=== PATIENT | female | born 1960 | race Caucasian/White ===

== ENCOUNTER 2018-10-28 16:45 | Inpatient (IN) ==
[2018-10-28] MEDS ORDERED: PERCOCET-5 PO PRN (19:02)
[2018-10-28] MEDS ORDERED: VALIUM PO PRN (19:02)
[2018-10-28] MEDS ORDERED: RANITIDINE HCL 300 MG PO PRN (19:02)
[2018-10-28] MEDS ORDERED: MAGNESIUM SULFATE 1 GM/D5W 1 GM/100 ML IVPB IV ONE (19:08)
[2018-10-28] MEDS ORDERED: VANCOMYCIN IV PER PHARMACY MISC SCH (19:15)
[2018-10-28 19:59] LABS: BASO# 0.02 X1000 (0.0-0.2); BASO% 0.2 % (0.0-0.8); EOS% 2.2 % (0.0-10.0); HEMATOCRIT 39.5 % (37.0-47.0); LYMPH# 2.36 X1000 (1.2-3.4); LYMPH% 26.5 % (20.5-51.1); MCH 31.5 PG (27-31); MCHC 32.9 g/dL (33-37); MCV 95.6 FL (81-99); MONO# 0.55 X1000 (0.11-0.59); MONO% 6.2 % (1.7-9.3); MPV 11.3 FL (7.4-10.4); NEUT# 5.78 X1000 (1.4-6.5); NEUT% 64.9 % (42.2-75.2); PLT 244 X1000 (130-400); RBC 4.13 XMIL (4.2-5.4); RDW 13.1 % (11.5-14.5); WBC 8.91 X1000 (4.8-10.8)
--- NOTE | 2018-10-28 20:11 | GENERAL SURGERY CONSULTATION ---
DATE: 10/28/2018 HPI: This is a 58-year-old female who had a port placed on October [address] Wilson. This is for chronic magnesium infusions at home. She is chronically hypomagnesemic. She over last 24 hours developed pain, erythema and swelling overlying her right port and catheter site. She went to [facility] in [facility] where there was apparently no surgical coverage where consult via the phone and transfer was remained here for management of this. She has been started on broad- spectrum antibiotics. Blood cultures have been drawn both there and here. She denies any chest pain, shortness of breath. She has no upper extremity swelling. Port has been functioning okay. Said they did have some difficulty last go round with drawing blood specimen. MEDICAL HISTORY: Chronic low magnesium, PTSD, Sjogren syndrome, irritable bowel, hyperlipidemia, depression, interstitial cystitis. SURGICAL HISTORY: She had a right internal jugular vein port, she has had management of bleeding ulcers, cholecystectomy, hysterectomy, right wrist operation. SOCIAL HISTORY: No tobacco, alcohol or drugs. FAMILY HISTORY: Reviewed, noncontributory. REVIEW OF SYSTEMS: Ten point negative. PHYSICAL EXAM: Temperature is 98 degrees, pulse 72, blood pressure 144/73, oxygen saturation 99% on room air.General: She is alert. HEENT: There is a erythema along the right internal jugular vein port down to the insertion site but no cervical mass, no swelling. Cardiovascular: Normal rate. Pulmonary: No stridor or increased work of breathing. Abdomen: Soft. Integument Warm, dry . Musculoskeletal: Her right wrist is in the splint. PERIPHERAL VASCULAR: There is no upper extremity edema and otherwise well perfused.Psychiatric: Appropriate affect. Neurologic: No gross deficits . LAB: Are pending been drawn currently. No imaging. ASSESSMENT/PLAN: 58-year-old female with apparent infection of right port recently placed by Dr. Wilson. Will make her NPO at midnight. I have recommended port removal and myself or Dr. Wilson will remove this tomorrow, otherwise she is on broad-spectrum antibiotics. She has been admitted Dr. Salguero service. I talked to Dr. Huerta about her. cc: MD Aidan Hodge MD
[2018-10-28] MEDS: ZOSYN 3.375 GM in NS 50 ML IV SCH (21:29)
[2018-10-28] MEDS: NEURONTIN PO SCH (21:29)
[2018-10-28] MEDS: XANAX PO PRN (21:29)
[2018-10-28] MEDS: LIORESAL PO PRN (21:33)
[2018-10-28] MEDS ORDERED: VANCOMYCIN 1 GM/NS 1 GM/250 ML IVPB IV ONE (22:00)
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
[2018-10-29] MEDS: ZOSYN 3.375 GM in NS 50 ML IV SCH ×2 (01:57→07:58)
[2018-10-29] MEDS ORDERED: XYLOCAINE-MPF 2% ONE (07:13)
[2018-10-29] MEDS ORDERED: DIPRIVAN 1% ONE (07:13)
[2018-10-29 07:31] LABS: AGAP 10; ALB/GLOB RATIO 1.7; ALBUMIN 3.8 g/dL (3.5-5.0); ALKALINE PHOSPHATASE 43 U/L (32-104); BUN 7 mg/dL (8-22); CALCIUM 8.7 mg/dL (8.8-10.2); CHLORIDE 104 mmol/L (98-107); COSMO 283; CREATININE 0.9 mg/dL (0.5-0.9); ESTIMATED GFR > 60; GLUCOSE 106 mg/dL (70-104); GOT 190 U/L (10-30); GPT 103 U/L (10-36); POTASSIUM 3.9 mmol/L (3.5-5.1); SODIUM 143 mmol/L (136-145); TCO2 29 mmol/L (25-35); TOTAL BILIRUBIN 0.64 mg/dL (0.20-1.00); TOTAL PROTEIN 6.1 g/dL (6.3-8.3)
[2018-10-29] MEDS ORDERED: MARCAINE 0.5% PF ONE (07:37)
[2018-10-29] MEDS ORDERED: XYLOCAINE 1%/EPI 1:100,000 ONE (07:37)
[2018-10-29] MEDS ORDERED: ZOFRAN ONE (07:39)
--- NOTE | 2018-10-29 07:51 | GENERAL SURGERY PROGRESS NOTE ---
DATE: 10/29/2018 The patient had a port placed by myself 2 weeks ago, apparently has developed some cellulitis concerning for an infection. I discussed with her the risks, benefits, and alternatives of removal. She has been seen by my partner, Dr. Ortega, over the weekend. He discussed with the risks also. We will schedule for this today. All questions answered. cc: MD Aidan Stearns MD
[2018-10-29] MEDS: PHENERGAN ONE ×2 (08:06→08:09)
--- NOTE | 2018-10-29 08:19 | OPERATIVE NOTE ---
PROCEDURE DATE: 10/29/2018 PREOP DIAGNOSIS: Possible infected port. POSTOPERATIVE DIAGNOSIS: Possible infected port. PROCEDURE: Removal of port. SURGEON: Jame Wilson MD. SALES EXECUTIVE: None. ANESTHESIA: IV MAC. ESTIMATED BLOOD LOSS: 2 mL. SPECIMENS REMOVED: Port for culture. FINDINGS: No real purulence but cellulitis noted on the wound. COMPLICATIONS: None at the time of this dictation. BRIEF HISTORY: A 58-year-old female with a port placed 2 weeks ago. It became erythematous around it, and it was felt that it essentially was infected. The risks, benefits, and alternatives were discussed with the patient. All questions answered. DESCRIPTION OF PROCEDURE: After informed consent was obtained, the patient brought to the operative theatre, transferred to the operating room table and placed in the supine position. IV MAC anesthesia was then performed without complication. A formal time-out was then performed confirming patient, procedure, and side and all were in agreement. At that time, attention directed to the right neck. It was prepped and draped in sterile fashion. After the time-out, we turned our attention to the right port. At her previous incision, we used local anesthetic to anesthetize the skin, made an incision through her old incision to encounter the port. There was a small capsule which we broke up. We were able to pull the port out, held pressure into the neck for 5 minutes. There was no active bleeding. We closed the skin loosely using 3-0 Vicryl. The patient tolerated the procedure well and had a sterile dressing applied. cc: MD Aidan Stearns MD
--- NOTE | 2018-10-29 11:19 | Diag Imaging Result Doc PS360 ---
CHEST-2 VIEWS - 10/29/2018 INDICATION: None provided COMPARISON: 10/10/2018 FINDINGS: The chest port has been removed. There is some linear atelectasis in the left lung base. No definite infiltrates. Heart size is normal. IMPRESSION: Linear atelectasis in the left lung base but no acute disease. Electronically signed by Reddy Stone 10/29/2018 11:16 AM
[2018-10-29] MEDS: PROZAC PO SCH (11:23)
[2018-10-29] MEDS: NEURONTIN PO SCH ×3 (11:23→21:50)
[2018-10-29] MEDS: MAXIPIME 2 GM in NS 100 ML IV SCH ×3 (12:34→22:24)
--- NOTE | 2018-10-29 12:34 | INFECTIOUS DISEASE CONSULT REP ---
DATE: 10/29/2018 CONCLUSION: The patient has had her Port-A-Cath removed because it was felt it was infected. The patient relates to me that her neck and upper right chest were erythematous, and swollen, and tender, and I think it could be from an infected Port-A-Cath. RECOMMENDATIONS: Pending cultures. I agree with treating with vancomycin. I have substituted cefepime for Zosyn. DISCUSSION: The patient approximately 3 days ago, had the onset of right neck erythema, swelling, and pain. Where the Port-A-Cath was put in, the chest was also erythematous, swollen, and tender. She had the Port-A-Cath removed at surgery today. According to Dr. Wilson's operative note, there was no pus encountered. Cultures have been taken from the patient's blood and from the operative site. The CBC shows a white count of 8910, hemoglobin 13, and platelet count 244,000. Creatinine is 0.9. GFR is greater than 60. The AST is 190. Blood and chest cultures are pending. PAST MEDICAL HISTORY/REVIEW OF SYSTEMS: Eyes and Ears: She does not have any trouble seeing or hearing. Neck: See present illness. Respiratory: No cough or shortness of breath. Cardiac: No chest pain or palpitations. GI: No nausea, vomiting, or diarrhea. Genitourinary: No dysuria or flank pain. Endocrine: The patient does not have diabetes or thyroid disease. Neurologic: The patient does not have seizures, and she has not recently lost any motor or sensory function. Bones, joints, muscles: No swollen joints or muscle aching. Integument: No rashes noted. AIR SAMPLING AND MONITORING HISTORY: She is a 1, para 1, AB 0. She has had a hysterectomy. PREVIOUS HOSPITALIZATIONS AND OPERATION: She has had a labor and delivery, hysterectomy, placement of a Port-A-Cath, cholecystectomy, surgery on her right wrist, and she was admitted for gastric ulcer which was cauterized by endoscopy. MEDICAL DISEASES: Positive for gastric ulcer, hypertension, hypomagnesemia, interstitial cystitis, and depression. INFECTIOUS DISEASE HISTORY: Positive for urinary tract infections. FAMILY HISTORY: Positive for cancer, stroke, hypertension, congestive heart failure, and myocardial infarction. SOCIAL HISTORY: The patient [place] The patient has a dog as a pet. ALLERGIES: Her chart lists allergies to metoclopramide, acetaminophen, hydrocodone, and lisinopril. MEDICATIONS: Medications taken at home include alprazolam, baclofen, Diazepam, Prozac, gabapentin, oxycodone, and ranitidine. PHYSICAL EXAMINATION: Vital Signs: Temperature is 98 degrees, pulse 75, respirations 20, blood pressure 107/62. Patient weighs 154 pounds. General: This is an ill- appearing middle-aged female. She is lethargic. She has just come up from the recovery room. Head/eyes/ears/nose/throat: No drainage noted from the nose or ears. There were no white patches on her tongue. Neck: There is a dressing on the lower part of the right side of the neck. There was no visible erythema around the dressing. Thorax: The patient had a dressing, where the Port-A-Cath was located, and there was a dressing over it. There was no visible erythema of the chest around the dressing. The dressing is intact. Lungs: Clear to auscultation. Cardiovascular: Regular heart rate. Abdomen: Soft and nontender. Neurologic : The patient is lethargic. She is as mentioned above. She had just come from the recovery room. She could move her extremities. There was no tremor. Her sensation was intact to touch. Her memory as regarding her medical history was good. Integument: No rash. cc: MD Aidan Scanlon MD MTDD
--- NOTE | 2018-10-29 22:38 | PROGRESS NOTE ---
DATE: 10/29/2018 SUBJECT: 58-year-old white female admitted to the hospital yesterday with cellulitis from the port which was placed 2 weeks ago. Apparently she went to [facility], transferred here for possible blood clot and infection. Review of systems reported, appreciated Dr. Jame Wilson consult, Dr. Estrada. Patient was seen in the morning was not there went to the OR to remove the port on the right side of the chest. She came back this evening, she is feeling little better. She is getting magnesium sulfate 3 g twice a week through the peripheral line. Etiology was not clear. Patient is not able to take mag oxide by mouth. REVIEW OF SYSTEMS: None reported. PAST MEDICAL HISTORY: Reviewed. PAST SURGICAL HISTORY: Reviewed. MEDICINES: Reviewed. ALLERGIES: Reviewed. EXAMINATION: Temperature is 99 degrees, low-grade fever. Vitals are stable.HEENT: Within normal limits. Port was removed . Chest: Is bilateral air entry. Heart: Sounds are regular. Belly: Is soft, nontender. No obvious neurological deficits. INVESTIGATIONS: CBC is normal. SMA 7 is normal. AST, ALT were high. Magnesium 2.0. Cultures are pending. ASSESSMENT AND PLAN: 1. Hypomagnesemia, etiology is not clear, on replacement therapy. 2. Infected port removed. Continue IV antibiotics as per Dr. Estrada which includes cefepime and vancomycin. 3. Hypomagnesemia on magnesium sulfate. 4. Reconcile home medication. 5. Oral thrush. Diflucan was started. Appreciated consultants. LEVEL OF DOCUMENTATION: 25 minutes. cc: Aidan Salguero MD
[2018-10-29] MEDS: VANCOMYCIN 1,500 MG in NS 250 ML IV SCH (22:49)
[2018-10-30] MEDS ORDERED: TYLENOL PO ONE (04:39)
[2018-10-30] MEDS: DIFLUCAN PO SCH (09:02)
[2018-10-30] MEDS: NEURONTIN PO SCH ×3 (09:02→20:48)
[2018-10-30] MEDS: PROZAC PO SCH (09:02)
[2018-10-30] MEDS: PERIDEX MT SCH ×2 (09:02→20:48)
[2018-10-30] MEDS: MAXIPIME 2 GM in NS 100 ML IV SCH ×3 (10:38→23:52)
[2018-10-30] MEDS: SLOW-MAG PO SCH (13:39)
[2018-10-30] MEDS: PHENERGAN ONE (14:36)
--- NOTE | 2018-10-30 16:21 | INFECTIOUS DISEASE PROGRESS NO ---
DATE: 10/30/2018 PRESENT ILLNESS: Ms. Mendoza is status post Port-A-Cath removal due to concern for infection. At this point cultures are pending. MEDICATIONS: She is on day 1 of cefepime 2 g IV every 12 hours and day 2 of vancomycin IV per pharmacy dosing. PHYSICAL EXAMINATION: Vital Signs: Temperature is 98.4 degrees, pulse rate 78 , respiratory rate 20, blood pressure 126/67, O2 saturation is 100% on room air. General: This is a somewhat ill-appearing, middle-aged female. She is lying in bed, currently in no acute distress. HEENT: Atraumatic, normocephalic. Oral mucous membranes are pink and moist. Conjunctivae are pink. Neck: Supple. Trachea is midline. Cardiovascular: Heart rate is regular. Pedal and radial pulses are +2 bilaterally. No edema noted. Respiratory: Lung sounds are clear to auscultation bilaterally. Abdomen: Soft, round, and nontender. Bowel sounds are active. Integumentary: Skin is warm and dry. There is a dressing in place to the right neck and chest. Surgical dressings have not been removed at this point. Surrounding area is mildly tender, but no erythema, or drainage on the dressing. Neurologic: She is awake , alert, oriented, and able to move around independently without any focal deficits. LABORATORY AND X-RAY: None available today. ASSESSMENT AND PLAN: Ms. Mendoza has had a Port-A-Cath removed only 2 weeks after insertion. She tells me that the area was very red, painful, and edematous with nodules before the Port-A- Cath was removed. At this point, we are awaiting anaerobic and routine cultures taken yesterday from surgery. So far blood cultures have shown no growth after 48 hours. For now we will continue vancomycin and cefepime as broad-spectrum coverage until cultures have finalized. These plans have been discussed with and recommended by Dr. Estrada. COMORBIDITIES: For Ms. Mendoza include Sjgren's disease, osteoarthritis, and chronic hypomagnesemia. Dictated by KUNAL Esparza for Daniel Estrada MD This chart was documented by, KUNAL Esparza and accurately reflects the services performed, treatment plan and medical decisions as attested by the providers signature Daniel Estrada MD. cc: MD Aidan Scanlon MD [facility]ENTERHan
[2018-10-30] MEDS ORDERED: ZANTAC PO PRN (17:22)
[2018-10-30] MEDS: XANAX PO PRN (20:48)
[2018-10-30] MEDS: LIORESAL PO PRN (20:48)
[2018-10-30] MEDS: VANCOMYCIN 1,500 MG in NS 250 ML IV SCH (21:40)
--- NOTE | 2018-10-31 00:21 | PROGRESS NOTE ---
DATE: 10/30/2018 SUBJECTIVE: The patient has a low-grade fever. Wants to take Slow-Mag by mouth. The port was removed on the right side. Waiting for culture. Slight redness noted. Patient is on antibiotic, on cefepime and vancomycin. We will discuss with Dr. Estrada about the antibiotics. EXAM: Vital Signs: Temperature is 98 degrees. Blood pressure and vitals are stable. HEENT: Within normal limits. Chest: Clear. Heart: Sounds are regular. Abdomen: Belly is soft, nontender. Neurologic: No obvious neurological deficits. INVESTIGATIONS: So far, blood cultures are negative. ASSESSMENT AND PLAN: 1. Infected port. Follow up on the culture. Continue on IV cefepime and vancomycin. 2. Hypomagnesium. Will give slow magnesium, without causing diarrhea. 3. Acid reflux disease, on Zantac. Continue present medical therapy. Underlying chronic pain, anxiety, and depression. We will discuss with Dr. Estrada. LEVEL OF DOCUMENTATION: 25 minutes. cc: Aidan Salguero MD
[2018-10-31] MEDS ORDERED: MAGNESIUM SULFATE 2 GM/S.W.I. 2 GM/50 ML IVPB IV ONE (08:20)
[2018-10-31] MEDS: PERIDEX MT SCH ×2 (09:53→20:19)
[2018-10-31] MEDS: NEURONTIN PO SCH ×3 (09:53→20:20)
[2018-10-31] MEDS: SLOW-MAG PO SCH (09:53)
[2018-10-31] MEDS: PROZAC PO SCH (09:53)
[2018-10-31] MEDS: DIFLUCAN PO SCH (09:53)
[2018-10-31] MEDS: MAXIPIME 2 GM in NS 100 ML IV SCH ×2 (13:15→22:03)
--- NOTE | 2018-10-31 15:35 | INFECTIOUS DISEASE PROGRESS NO ---
DATE: 10/31/2018 PRESENT ILLNESS: The patient is status post removal of a presumed infected Port-A-Cath. MEDICATIONS: The patient is in day 2 of treatment with the combination of cefepime and vancomycin. PHYSICAL EXAMINATION: Vital Signs: Temperature is 97.8 degrees, pulse 70, respirations 16, blood pressure 143/76. General: This is a somewhat ill-appearing, middle-aged female. She is in no acute distress. Head, eyes, ears, nose, and throat: She can hear my spoken words and see near objects. No drainage was noted from the nose or ears. She does not have any white patches on her tongue. Neck and chest: The site where the Port-A-Cath was placed was inspected. It is not erythematous. It is not draining. There is no swelling either. Lungs: Clear to auscultation. Cardiovascular: Heart rate is regular. Abdomen: Soft and nontender. Neurologic: The patient is alert. She can move her extremities. There is no tremor. LAB AND X-RAY: There was no new lab or x-ray for today, except for the reports on the patient's cultures. Blood and chest cultures taken at surgery are all negative. ASSESSMENT AND PLAN: The patient has had removal of her Port-A-Cath for presumed infection. There certainly was cellulitis present and I presume that there was actually an infection there causing the cellulitis. I think the cellulitis has cleared up nicely and the patient from an Infectious Disease point of view could have another Port-A-Cath put in, in some other area than where the one that was just taken out was placed. COMORBIDITIES: She has Sjogren's disease, osteoarthritis, and hypomagnesemia. cc: MD Aidan Scanlon MD
[2018-10-31] MEDS: VANCOMYCIN 1,500 MG in NS 250 ML IV SCH ×2 (20:20→21:22)
[2018-10-31] MEDS: XANAX PO PRN ×2 (20:20→20:24)
[2018-10-31] MEDS: LIORESAL PO PRN (20:20)
--- NOTE | 2018-11-01 01:33 | PROGRESS NOTE ---
DATE: 10/31/2018 SUBJECTIVE: The Port-A-Cath was removed, slightly red. Cultures are pending. Dr. Estrada is consulted. So far, all the cultures were negative. She needs IV access. The patient complains of weakness. EXAMINATION: Vital Signs: Temperature is 98 degrees, pulse is 78. Blood pressure is stable. HEENT: Within normal limits. Chest: Clear. Heart: Sounds are regular. Abdomen: Belly is soft, nontender. LABORATORY STUDIES: Magnesium is 1.4. ASSESSMENT AND PLAN: 1. Hypomagnesemia. Etiology is not clear. Not able to tolerate slow magnesium. We will give her mag sulfate 2 g, along with p.o. 2. Discussed with Dr. Estrada. So far, cultures are pending and negative. Continue on IV vancomycin and Maxipime. Apparently, the patient needs another IV axis. 3. We will discuss with Dr. Wilson, and also to the patient, and will follow up. LEVEL OF DOCUMENTATION: 25 minutes. cc: Aidan Salguero MD
--- NOTE | 2018-11-01 06:11 | GENERAL SURGERY PROGRESS NOTE ---
DATE: 11/01/[address] Salguero, wanting me to entertain placement of a new IV access. Came in and discussed with the patient. The patient is somewhat hesitant for another port in her chest. We reviewed the microbiology data which, at this point, has not show any growth nor positive blood cultures. The patient had multiple questions about other etiologies for her low magnesium also during this discussion. She also complained of soreness in her right neck where there is a little bit of a lump where she had her central line placed in her neck. At this point, given the patient's hesitancy for another port, we will hold off but we will keep an eye on the patient and follow peripherally. Another option could be placement of a PICC line for right now. If the discomfort in the neck persists, may need to consider ultrasound of the neck but at this point, I will follow peripherally. cc: MD Aidan Stearns MD
[2018-11-01 07:04] LABS: BASO# 0.06 X1000 (0.0-0.2); BASO% 0.8 % (0.0-0.8); EOS% 5.6 % (0.0-10.0); HEMATOCRIT 38.1 % (37.0-47.0); HEMOGLOBIN 12.5 g/dL (12.0-16.0); LYMPH% 32.1 % (20.5-51.1); MCH 31.6 PG (27-31); MCHC 32.8 g/dL (33-37); MCV 96.2 FL (81-99); MONO# 0.39 X1000 (0.11-0.59); MONO% 5.4 % (1.7-9.3); MPV 11.4 FL (7.4-10.4); NEUT# 4.02 X1000 (1.4-6.5); NEUT% 56.1 % (42.2-75.2); PLT 251 X1000 (130-400); RBC 3.96 XMIL (4.2-5.4); RDW 13.2 % (11.5-14.5); WBC 7.17 X1000 (4.8-10.8)
[2018-11-01 07:38] LABS: AGAP 13; BUN 11 mg/dL (8-22); CALCIUM 9.3 mg/dL (8.8-10.2); CHLORIDE 100 mmol/L (98-107); COSMO 281; CREATININE 0.7 mg/dL (0.5-0.9); ESTIMATED GFR > 60; GLUCOSE 107 mg/dL (70-104); POTASSIUM 4.2 mmol/L (3.5-5.1); SODIUM 141 mmol/L (136-145); TCO2 28 mmol/L (25-35)
[2018-11-01 07:54] VITALS: BP 113/77
[2018-11-01] MEDS: PROZAC PO SCH (08:43)
[2018-11-01] MEDS: PERIDEX MT SCH (08:43)
[2018-11-01] MEDS: DIFLUCAN PO SCH (08:43)
[2018-11-01] MEDS: SLOW-MAG PO SCH (08:43)
[2018-11-01] MEDS: NEURONTIN PO SCH (08:43)
--- NOTE | 2018-11-03 18:12 | DISCHARGE SUMMARY ---
ADMISSION DATE: 10/30/2018 DISCHARGE DATE: 11/01/2018 DISCHARGING DIAGNOSIS: Infected Port-A-Cath on the right side with cellulitis. SECONDARY DIAGNOSIS: 1. Hypomagnesemia, etiologies to be determined. 2. 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 CONSULTANTS: 1. Dr. Wilson. 2. Dr. Estrada. PROCEDURES: Removal of the port on the right side. BRIEF HISTORY: Please see the H and P that was done by Dr. Huerta. In brief she is a 58-year-old white female recently had a port placed by Dr. Wilson, was brought into the hospital from [facility] with a fever, cellulitis at the site of the port. Initially it was thought this could be a thrombosis or infection. Dr. Estrada was consulted. Patient was started on IV antibiotics. Dr. Wilson removed the port. She has a small palpable knot on the right scalenus muscle. No signs of infection noted. All the cultures were negative. Fever was subsided and there is no need to do any further antibiotics. The patient continues to have low magnesium and at this time the etiology was not clear. She is refusing for another IV access or PICC line at this time. She wants to go home, continue on magnesium IV replacement 3 g twice a week through the home health agency. She also given Slow-Mag by mouth. She cannot take high doses due to diarrhea. LABS: CBC. White cell count 7.1, hematocrit 38, platelets 251,000. SMA 7 sodium 140, potassium 4.2, chloride 100, BUN 11, creatinine 0.7, glucose 107, magnesium 1.8. Blood cultures were negative. DISCHARGE INSTRUCTIONS: Prozac 40 daily, ranitidine 300 daily, Xanax 1 mg t.i.d., gabapentin 600 t.i.d., Percocet 1 tablet as needed, baclofen 10 p.o. b.i.d., Slow-Mag 64 mg daily. Patient is going to follow up the psychiatric for underlying chronic pain and posttraumatic stress disorder. Continue magnesium replacement, also look for long-term IV access. cc: Aidan Salguero MD
== END 2018-11-01 10:14 | disposition home or self-care (01) | DRG 315 ==
LOC: DIRADM → 4N 16:45
PROVIDERS: ADMIT Internal Medicine; ATTEND Internal Medicine
CPT/HCPCS: 71020; 71046; 80048; 80053; 82565; 83735; 85025; 87040; 87070; 87075; 87205; 88300; 94761; A9270; J0692; J2405; J2543; J2550; J3370; J3475; J7050; S0020